=== PATIENT | male | born 1960 | race Caucasian/White ===

== ENCOUNTER 2018-06-07 18:40 | Inpatient (IN) | payer BC, OTHER ==
[~2018-06-07] VITALS: Ht 172.7 cm; Wt 123.4 kg
--- NOTE | 2018-06-07 18:56 | NUR ---
THIS RN ATTEMPTED TO CALL PT BACK. NILx1.
[2018-06-07] MEDS ORDERED: SODIUM CHLORIDE 0.9% 1,000 ML IV ONE (19:29)
[2018-06-07] MEDS ORDERED: AZITHROMYCIN 500 MG in SODIUM CHLORIDE 0.9% 250 ML IVPB ONE (19:30)
[2018-06-07] MEDS ORDERED: ACETAMINOPHEN 500 MG TABLET PO ONE (19:30)
[2018-06-07] MEDS ORDERED: SODIUM CHLORIDE FLUSH 10ML SYR IVF ONE (19:30)
[2018-06-07] MEDS ORDERED: CEFTRIAXONE PMX 1GM/50ML 50 ML IVPB ONE (19:30)
[2018-06-07] MEDS ORDERED: CEFTRIAXONE PMX 1GM/50ML 50 ML ONE (19:39)
[2018-06-07] MEDS ORDERED: ACETAMINOPHEN 500 MG TABLET ONE (19:39)
[2018-06-07] MEDS ORDERED: ALBUTEROL/IPRATROPIUM 2.5MG/0.5MG, 3 ML ONE (19:45)
[2018-06-07] MEDS ORDERED: KETOROLAC 30 MG/1 ML ONE (19:49)
[2018-06-07] MEDS ORDERED: MORPHINE SULFATE 4 MG/ML, 1ML ONE (19:49)
[2018-06-07 19:57] LABS: INTERNATIONAL NORMALIZED RATIO 1.14 (0.93-1.1); PROTHROMBIN TIME 11.9 Seconds (9.6-11.5)
[2018-06-07 19:58] LABS: ALANINE AMINOTRANSFERASE 53 U/L (12-78); ALBUMIN 3.6 g/dL (3.4-5.0); ANION GAP 7 mmol/L (5-15); CALCIUM 8.5 mg/dL (8.5-10.1); CHLORIDE 106 mmol/L (98-107); CREATININE 1.08 mg/dL (0.7-1.3)
[2018-06-07] MEDS ORDERED: SODIUM CHLORIDE 0.9% 1,000ML IVBOLUS ONE (20:00)
[2018-06-07] MEDS ORDERED: KETOROLAC 30 MG/1 ML IVPush ONE (20:00)
[2018-06-07] MEDS ORDERED: ALBUTEROL/IPRATROPIUM 2.5MG/0.5MG, 3 ML NPPB ONE (20:00)
[2018-06-07] MEDS ORDERED: MORPHINE SULFATE 4 MG/ML, 1ML IVPush PRN (20:00)
[2018-06-07 20:02] LABS: ALKALINE PHOSPHATASE 42 U/L (45-117); BILIRUBIN,TOTAL 0.9 mg/dL (0.2-1.0); TOTAL PROTEIN 7.4 g/dL (6.4-8.2)
[2018-06-07 20:04] LABS: RAPID INFLUENZA A Negative (Negative); RAPID INFLUENZA B Negative (Negative)
[2018-06-07 20:08] LABS: MEAN CORPUSCULAR HEMOGLOBIN 30.7 pg (27.5-34.5); MEAN CORPUSCULAR HGB CONC 33.7 g/dL (33.2-36.2); MEAN CORPUSCULAR VOLUME 91.1 fL (81-97); MEAN PLATELET VOLUME 13.4 fL (7.4-10.4); PLATELET COUNT 116 x10^3/uL (130-400); RED BLOOD COUNT 5.28 x10^6/uL (4.38-5.82); RED CELL DISTRIBUTION WIDTH 14.5 % (9.4-14.8)
[2018-06-07 20:09] LABS: MD YES
[2018-06-07 20:11] LABS: BAND#(MANUAL) 1.19 x10^3/uL; BANDS%(MANUAL) 9 % (0-7); LYMPH#(MANUAL) 0.53 x10^3/uL (1-3.4); LYMPHS% (MANUAL) 4 % (22-44); MONOS#(MANUAL) 0.79 x10^3/uL (0.3-2.7); MONOS% (MANUAL) 6 % (2-9); SEG#(MANUAL) 10.69 x10^3/uL (1.8-6.8); SEGS% (MANUAL) 81 % (42-75)
[2018-06-07 20:12] LABS: <PLATELET ESTIMATE> DECREASED; <RBC MORPHOLOGY> NORMAL; LARGE PLATELETS 1+
--- NOTE | 2018-06-07 20:18 | NUR ---
[facility] AT BEDSIDE
[2018-06-07] MEDS ORDERED: DILTIAZEM 5 MG/ML, 10ML ONE (20:26)
[2018-06-07] MEDS ORDERED: NITROGLYCERIN 0.4 MG BOTTLE (25 TABS) SL PRN (20:30)
[2018-06-07] MEDS ORDERED: ONDANSETRON 2MG/ML, 2ML IVPush PRN (20:30)
[2018-06-07] MEDS ORDERED: morphine SULFATE 10 MG/ML, 1ML IVPush PRN (20:30)
[2018-06-07] MEDS ORDERED: NITROGLYCERIN 0.4 MG/SPRAY SL PRN (20:30)
[2018-06-07] MEDS ORDERED: ACETAMINOPHEN 325 MG TABLET PO PRN (20:30)
[2018-06-07] MEDS: DILTIAZEM 5 MG/ML, 5ML IVPush PRN ×2 (20:33→22:06)
[2018-06-07] MEDS ORDERED: KETOROLAC 30 MG/1 ML IV PRN (21:00)
[2018-06-07 21:14] LABS: HEMOGLOBIN A1C 5.9 % (4.2-6.3)
[2018-06-07 21:15] VITALS: BP 101/75
[2018-06-07 21:52] LABS: TROPONIN I 0.035 ng/mL (0.000-0.045)
[2018-06-07 21:58] LABS: FREE T4 (FREE THYROXINE) 1.38 ng/dL (0.76-1.46); THYROID STIMULATING HORMONE 0.773 mIU/L (0.358-3.740)
[2018-06-07] MEDS: LACTATED RINGERS 1,000 ML IV SCH (22:04)
[2018-06-07] MEDS: FAMOTIDINE 20 MG/2 ML IVPush SCH (22:05)
[2018-06-07] MEDS: methylPREDNISolone SOD SUCC 125 MG/2 ML IVPush SCH (22:05)
[2018-06-07] MEDS: ENOXAPARIN 40 MG/0.4 ML SQ SCH (22:05)
[2018-06-07] MEDS ORDERED: MAGNESIUM SULFATE PMX 2GM/50ML 50 ML IV ONE (22:30)
[2018-06-08] VITALS (7 sets, daily range): BP systolic 114–152; BP diastolic 76–110
[2018-06-08 02:02] LABS: MEAN CORPUSCULAR HEMOGLOBIN 30.9 pg (27.5-34.5); MEAN CORPUSCULAR HGB CONC 33.5 g/dL (33.2-36.2); MEAN CORPUSCULAR VOLUME 92.3 fL (81-97); MEAN PLATELET VOLUME 12.4 fL (7.4-10.4); PLATELET COUNT 103 x10^3/uL (130-400); RED BLOOD COUNT 5.19 x10^6/uL (4.38-5.82); RED CELL DISTRIBUTION WIDTH 14.8 % (9.4-14.8)
[2018-06-08 02:19] LABS: TROPONIN I 0.028 ng/mL (0.000-0.045)
[2018-06-08 02:26] LABS: MD YES
[2018-06-08 02:28] LABS: <PLATELET ESTIMATE> DECREASED; <RBC MORPHOLOGY> NORMAL; BAND#(MANUAL) 2.53 x10^3/uL; BANDS%(MANUAL) 16 % (0-7); LARGE PLATELETS 1+; LYMPH#(MANUAL) 0.95 x10^3/uL (1-3.4); LYMPHS% (MANUAL) 6 % (22-44); MONOS#(MANUAL) 0.79 x10^3/uL (0.3-2.7); MONOS% (MANUAL) 5 % (2-9); SEG#(MANUAL) 11.53 x10^3/uL (1.8-6.8); SEGS% (MANUAL) 73 % (42-75)
[2018-06-08 02:44] LABS: ALANINE AMINOTRANSFERASE 49 U/L (12-78); ALBUMIN 3.3 g/dL (3.4-5.0); ANION GAP 6 mmol/L (5-15); CALCIUM 8.1 mg/dL (8.5-10.1); CHLORIDE 108 mmol/L (98-107)
[2018-06-08 02:47] LABS: ALKALINE PHOSPHATASE 39 U/L (45-117); BILIRUBIN,TOTAL 0.8 mg/dL (0.2-1.0); CHOL/HDL RATIO 3.4; CHOLESTEROL, TOTAL 116 mg/dL (140-239); CREATININE 1.04 mg/dL (0.7-1.3); HDL CHOL % 29 % (26-37); HDL CHOLESTEROL (DIRECT) 34 mg/dL (40-60); LDL CHOLESTEROL,CALCULATED 74 mg/dL (54-169); LDL/HDL RATIO 2.2 (0.5-3.0); TOTAL PROTEIN 7.2 g/dL (6.4-8.2); TRIGLYCERIDES 42 mg/dL (50-200); VLDL CHOLESTEROL 8 mg/dL (0-25)
[2018-06-08] MEDS: methylPREDNISolone SOD SUCC 125 MG/2 ML IVPush SCH ×4 (03:06→20:49)
[2018-06-08] MEDS ORDERED: ALBUTEROL SULFATE 2.5 MG/3 ML ONE (03:24)
[2018-06-08] MEDS: ALBUTEROL SULFATE 2.5 MG/3 ML NPPB SCH ×5 (03:31→20:00)
[2018-06-08] MEDS: ASPIRIN 325 MG TABLET EC PO SCH (05:37)
[2018-06-08] MEDS ORDERED: ASPIRIN 325 MG TABLET EC PO SCH (06:00)
[2018-06-08] MEDS ORDERED: DIGOXIN 0.125 MG TABLET PO SCH (09:00)
[2018-06-08] MEDS: CEFTRIAXONE PMX 1GM/50ML 50 ML IV SCH ×3 (09:33→22:11)
[2018-06-08] MEDS: FAMOTIDINE 20 MG/2 ML IVPush SCH ×2 (09:34→20:48)
[2018-06-08] MEDS: LACTATED RINGERS 1,000 ML IV SCH ×2 (09:34→18:11)
[2018-06-08 10:33] LABS: MICROSCOPIC AUTO
[2018-06-08 10:35] LABS: CULTURE INDICATED? NO
[2018-06-08] MEDS: DILTIAZEM 5 MG/ML, 5ML IVPush PRN (11:59)
[2018-06-08] MEDS: DILTIAZEM 125 MG in SODIUM CHLORIDE 0.9% 100 ML IV SCH (18:15)
[2018-06-08] MEDS: AZITHROMYCIN 500 MG in SODIUM CHLORIDE 0.9% 250 ML IV SCH ×2 (20:42→21:00)
[2018-06-08] MEDS: ENOXAPARIN 40 MG/0.4 ML SQ SCH (20:48)
[2018-06-09] VITALS (7 sets, daily range): BP systolic 107–151; BP diastolic 69–94
[2018-06-09] MEDS: ALBUTEROL SULFATE 2.5 MG/3 ML NPPB SCH ×5 (01:52→20:00)
[2018-06-09] MEDS: methylPREDNISolone SOD SUCC 125 MG/2 ML IVPush SCH ×3 (03:15→15:34)
[2018-06-09] MEDS: LACTATED RINGERS 1,000 ML IV SCH (03:16)
[2018-06-09 05:23] LABS: ALBUMIN 2.8 g/dL (3.4-5.0); ANION GAP 5 mmol/L (5-15); CALCIUM 8.2 mg/dL (8.5-10.1); CHLORIDE 110 mmol/L (98-107)
[2018-06-09] MEDS: ASPIRIN 325 MG TABLET EC PO SCH (05:24)
[2018-06-09 05:27] LABS: ALANINE AMINOTRANSFERASE 47 U/L (12-78); ALKALINE PHOSPHATASE 32 U/L (45-117); BILIRUBIN,TOTAL 0.4 mg/dL (0.2-1.0); CREATININE 0.79 mg/dL (0.7-1.3); TOTAL PROTEIN 6.5 g/dL (6.4-8.2)
[2018-06-09 05:38] LABS: BASOPHILS % (AUTO) 0 % (0-1); EOSINOPHILS % (AUTO) 0 % (1-7); LYMPHOCYTES # (AUTO) 0.18 x10^3/uL (1-3.4); LYMPHOCYTES % (AUTO) 1 % (22-44); MD SCAN; MEAN CORPUSCULAR HEMOGLOBIN 30.8 pg (27.5-34.5); MEAN CORPUSCULAR HGB CONC 33.5 g/dL (33.2-36.2); MEAN CORPUSCULAR VOLUME 91.8 fL (81-97); MEAN PLATELET VOLUME 13.4 fL (7.4-10.4); MONOCYTES % (AUTO) 2 % (2-9); NEUTROPHILS # (AUTO) 12.43 x10^3/uL (1.8-6.8); NEUTROPHILS % (AUTO) 96 % (42-75); PLATELET COUNT 104 x10^3/uL (130-400); RED BLOOD COUNT 4.76 x10^6/uL (4.38-5.82)
[2018-06-09] MEDS: CEFTRIAXONE PMX 1GM/50ML 50 ML IV SCH ×2 (08:33→21:07)
[2018-06-09] MEDS: FAMOTIDINE 20 MG/2 ML IVPush SCH ×2 (08:33→21:07)
[2018-06-09] MEDS: DILTIAZEM 125 MG in SODIUM CHLORIDE 0.9% 100 ML IV SCH (15:34)
[2018-06-09] MEDS: DILTIAZEM 30 MG TABLET PO SCH ×2 (15:59→21:08)
[2018-06-09] MEDS: ENOXAPARIN 40 MG/0.4 ML SQ SCH (21:07)
[2018-06-09] MEDS: AZITHROMYCIN 500 MG in SODIUM CHLORIDE 0.9% 250 ML IV SCH (22:00)
[2018-06-10 00:16] VITALS: BP 131/94
[2018-06-10] MEDS: ALBUTEROL SULFATE 2.5 MG/3 ML NPPB SCH ×5 (02:00→19:30)
[2018-06-10] MEDS ORDERED: methylPREDNISolone SOD SUCC 125 MG/2 ML IVPush SCH (03:00)
[2018-06-10 05:50] VITALS: BP 149/84
[2018-06-10] MEDS: ASPIRIN 325 MG TABLET EC PO SCH (05:55)
[2018-06-10] MEDS: DILTIAZEM 30 MG TABLET PO SCH (05:55)
[2018-06-10 08:13] VITALS: BP 144/96
[2018-06-10] MEDS: FAMOTIDINE 20 MG/2 ML IVPush SCH ×2 (08:29→20:54)
[2018-06-10] MEDS: CEFTRIAXONE PMX 1GM/50ML 50 ML IV SCH ×2 (08:30→20:54)
[2018-06-10 08:45] LABS: MEAN CORPUSCULAR HEMOGLOBIN 30.1 pg (27.5-34.5); MEAN CORPUSCULAR HGB CONC 32.7 g/dL (33.2-36.2); MEAN CORPUSCULAR VOLUME 92.1 fL (81-97); RED BLOOD COUNT 4.92 x10^6/uL (4.38-5.82); RED CELL DISTRIBUTION WIDTH 15.1 % (9.4-14.8)
[2018-06-10 09:20] LABS: BASOPHILS % (AUTO) 0 % (0-1); EOSINOPHILS % (AUTO) 0 % (1-7); LYMPHOCYTES # (AUTO) 0.18 x10^3/uL (1-3.4); LYMPHOCYTES % (AUTO) 1 % (22-44); MD SCAN; MEAN PLATELET VOLUME 13.1 fL (7.4-10.4); MONOCYTES # (AUTO) 0.27 x10^3/uL (0.2-0.8); MONOCYTES % (AUTO) 2 % (2-9); NEUTROPHILS % (AUTO) 96 % (42-75); PLATELET COUNT 120 x10^3/uL (130-400)
[2018-06-10 12:30] VITALS: BP 136/91
[2018-06-10 16:32] VITALS: BP 142/89
[2018-06-10] MEDS: DILTIAZEM 60 MG TABLET PO SCH ×2 (16:33→20:54)
[2018-06-10 20:26] VITALS: BP 149/90
[2018-06-10] MEDS: ENOXAPARIN 40 MG/0.4 ML SQ SCH (20:54)
[2018-06-11 00:58] VITALS: BP 152/103
[2018-06-11 05:27] LABS: MEAN CORPUSCULAR HEMOGLOBIN 30.6 pg (27.5-34.5); MEAN CORPUSCULAR VOLUME 92.8 fL (81-97); RED BLOOD COUNT 4.89 x10^6/uL (4.38-5.82); RED CELL DISTRIBUTION WIDTH 15.1 % (9.4-14.8)
[2018-06-11] MEDS: ASPIRIN 325 MG TABLET EC PO SCH (05:31)
[2018-06-11] MEDS: DILTIAZEM 60 MG TABLET PO SCH (05:31)
[2018-06-11 05:43] LABS: ANION GAP 7 mmol/L (5-15); CALCIUM 8.5 mg/dL (8.5-10.1); CHLORIDE 110 mmol/L (98-107); CREATININE 0.67 mg/dL (0.7-1.3)
[2018-06-11 05:55] LABS: MEAN PLATELET VOLUME 12.5 fL (7.4-10.4); PLATELET COUNT 120 x10^3/uL (130-400)
[2018-06-11 06:04] LABS: BASOPHILS % (AUTO) 0 % (0-1); EOSINOPHILS % (AUTO) 0 % (1-7); LYMPHOCYTES # (AUTO) 0.35 x10^3/uL (1-3.4); LYMPHOCYTES % (AUTO) 3 % (22-44); MD SCAN; MONOCYTES # (AUTO) 0.65 x10^3/uL (0.2-0.8); MONOCYTES % (AUTO) 6 % (2-9); NEUTROPHILS # (AUTO) 10.62 x10^3/uL (1.8-6.8); NEUTROPHILS % (AUTO) 91 % (42-75)
[2018-06-11] MEDS: ALBUTEROL SULFATE 2.5 MG/3 ML NPPB SCH ×3 (07:00→14:49)
[2018-06-11 07:06] VITALS: BP 142/67
[2018-06-11] MEDS ORDERED: ASPIRIN 81 MG TABLET EC PO SCH (08:00)
[2018-06-11] MEDS: FAMOTIDINE 20 MG/2 ML IVPush SCH (09:05)
[2018-06-11] MEDS: CEFTRIAXONE PMX 1GM/50ML 50 ML IV SCH (09:18)
[2018-06-11] MEDS ORDERED: DILTIAZEM 300 MG CAP.ER.24H PO SCH (11:00)
[2018-06-11] MEDS ORDERED: FUROSEMIDE 20 MG/2 ML IV ONE (12:30)
[2018-06-11] MEDS: METOPROLOL TARTRATE 25 MG TABLET PO SCH ×2 (12:52→15:16)
[2018-06-11 14:54] VITALS: BP 134/86
[2018-06-11] MEDS ORDERED: DILT300C2 PO (15:23)
[2018-06-11] MEDS ORDERED: ASPI81TA45 PO (15:23)
[2018-06-11] MEDS ORDERED: PRED10TA PO (15:23)
[2018-06-11] MEDS ORDERED: CEFD300C37 PO (15:23)
[2018-06-11] MEDS ORDERED: METO25TA35 PO (15:23)
[2018-06-11] MEDS ORDERED: FAMOTIDINE 20 MG TABLET PO SCH (21:00)
== END 2018-06-11 17:04 | disposition home or self-care (01) | DRG 871 ==
LOC: ED 20:09 → EDIP 20:43 → 5SO 20:57 → DCLOUNGE 06-11 16:55
PROVIDERS: ADMIT Family Medicine; ATTEND Family Medicine
DX: A41.9 Sepsis, unspecified organism (principal); J96.01 Acute respiratory failure with hypoxia; J15.3 Pneumonia due to streptococcus, group B; D68.69 Other thrombophilia; D69.6 Thrombocytopenia, unspecified; E66.9 Obesity, unspecified; I34.0 Nonrheumatic mitral (valve) insufficiency; Z96.642 Presence of left artificial hip joint; Z96.653 Presence of artificial knee joint, bilateral; T38.0X5A Adverse effect of glucocorticoids and synthetic analogues, initial encounter; E83.42 Hypomagnesemia; I48.91 Unspecified atrial fibrillation; I77.810 Thoracic aortic ectasia; Z68.35 Body mass index [BMI] 35.0-35.9, adult; Y92.098 Other place in other non-institutional residence as the place of occurrence of the external cause
CPT/HCPCS: 36415; 84145; 87400; 99285; J3490; J7613; J7620; 71045; 80048; 80053; 80061; 81001; 83036; 83605; 83735; 84439; 84443; 84484; 85025; 85610; 85730; 87040; 87070; 87147; 87181; 87205; 93005; 93306; 94640; 96374; 96375; G0378; J0456; J0696; J1650; J1885; J1940; J2930; J3475; J7030; J7050; J7120; J7512

== ENCOUNTER 2020-04-11 08:04 | Inpatient (IN) | payer BC ==
[~2020-04-11] VITALS: Ht 172.7 cm; Wt 125.5 kg
[~2020-04-11 08:04] MED LIST: ASPI81TA45 PO; CEFD300C37 PO; DILT300C2 PO; METO25TA35 PO; PRED10TA PO
[2020-04-11] MEDS ORDERED: SODIUM CHLORIDE FLUSH 10ML SYR IVF ONE (08:30)
[2020-04-11] MEDS ORDERED: methylPREDNISolone SOD SUCC 125 MG/2 ML IV ONE (08:30)
--- NOTE | 2020-04-11 08:34 | NUR ---
Pt here for SOB X "one year". Pt has c/o BLE edema, occasional cough, dyspnea on exertion.
[2020-04-11] MEDS ORDERED: methylPREDNISolone SOD SUCC 125 MG/2 ML ONE (08:43)
[2020-04-11 09:00] LABS: BASOPHILS % (AUTO) 2 % (0-1); EOSINOPHILS % (AUTO) 3 % (1-7); LYMPHOCYTES % (AUTO) 13 % (22-44); MEAN CORPUSCULAR HEMOGLOBIN 31.6 pg (27.5-34.5); MEAN CORPUSCULAR HGB CONC 33.2 g/dL (33.2-36.2); MEAN PLATELET VOLUME 12.4 fL (7.4-10.4); MONOCYTES % (AUTO) 12 % (2-9); NEUTROPHILS % (AUTO) 70 % (42-75); PLATELET COUNT 116 x10^3/uL (130-400); RED BLOOD COUNT 5.07 x10^6/uL (4.38-5.82); RED CELL DISTRIBUTION WIDTH 14.3 % (9.4-14.8)
[2020-04-11] MEDS ORDERED: DILTIAZEM 5 MG/ML, 5ML IVPush ONE (09:00)
[2020-04-11] MEDS ORDERED: DILTIAZEM 5 MG/ML, 5ML ONE (09:06)
[2020-04-11 09:09] LABS: ALANINE AMINOTRANSFERASE 45 U/L (12-78); ALBUMIN 3.4 g/dL (3.4-5.0); ANION GAP 4 mmol/L (5-15); CALCIUM 8.7 mg/dL (8.5-10.1); CHLORIDE 111 mmol/L (98-107); CREATININE 0.91 mg/dL (0.7-1.3)
--- NOTE | 2020-04-11 09:11 | NUR ---
Pt medicated with Solumederol amd Diltiazem. VS updated.
[2020-04-11 09:13] LABS: ALKALINE PHOSPHATASE 41 U/L (45-117); BILIRUBIN,TOTAL 0.6 mg/dL (0.2-1.0); TOTAL PROTEIN 6.6 g/dL (6.4-8.2); TROPONIN I < 0.015 ng/mL (0.000-0.045)
[2020-04-11 09:26] LABS: MD SCAN
--- NOTE | 2020-04-11 09:37 | NUR ---
TASK RN NOTE" PT VS UPDATED IN CHART. NAD NOTED AT THIS TIME. NO WOB NOTED. MED RECONCILIATION COMPLETED, PT DENIES TAKING ANY MEDICATIONS AT THIS TIME. REVIEWED PREVIOUS HOME MEDICATIONS FROM CHART AND PER PT ALL HAVE BEEN DISCONTINUED. SIDE RAIL UP, CALL LIGHT IN REACH.
[2020-04-11] MEDS ORDERED: ALBUTEROL/IPRATROPIUM 2.5MG/0.5MG, 3 ML ONE (09:43)
--- NOTE | 2020-04-11 09:47 | NUR ---
TASK RN NOTE: DISCUSSION WITH ERPA REGARDING BREATHING TREATMENT ORDER. MED ADMINISTERED ORDERED. TX UNDERWAY.
[2020-04-11] MEDS ORDERED: ALBUTEROL/IPRATROPIUM 2.5MG/0.5MG, 3 ML NPPB ONE (10:00)
[2020-04-11] MEDS ORDERED: FUROSEMIDE 20 MG/2 ML IV ONE (10:30)
[2020-04-11] MEDS ORDERED: FUROSEMIDE 20 MG/2 ML ONE (10:53)
--- NOTE | 2020-04-11 11:11 | NUR ---
Pt resting, resp even appear unlabored at this time. Dyspnea with exertion. Given Lasix. VS updated. Handoff report provided to LUCI Cardoso.
[2020-04-11 11:35] VITALS: BP 174/108
[2020-04-11] MEDS ORDERED: DILTIAZEM 5 MG/ML, 5ML IVPush PRN (12:30)
[2020-04-11] MEDS ORDERED: ONDANSETRON 2MG/ML, 2ML IVPush PRN (12:30)
[2020-04-11] MEDS ORDERED: ONDANSETRON ODT 4 MG PO PRN (12:30)
[2020-04-11] MEDS: Enoxaparin 1 mg/kg protocol SQ SCH (12:30)
[2020-04-11] MEDS: METOPROLOL TARTRATE 50 MG TAB PO SCH ×2 (13:10→21:59)
[2020-04-11] MEDS: ENOXAPARIN 120MG/0.8ML SQ SCH (13:11)
[2020-04-11 15:40] LABS: TROPONIN I < 0.015 ng/mL (0.000-0.045)
[2020-04-11] MEDS: FUROSEMIDE 20 MG/2 ML IV SCH (18:03)
[2020-04-11 19:08] VITALS: BP 145/94
[2020-04-11 21:42] LABS: TROPONIN I < 0.015 ng/mL (0.000-0.045)
[2020-04-12] MEDS: Enoxaparin 1 mg/kg protocol SQ SCH (00:30)
[2020-04-12 00:47] VITALS: BP 117/89
[2020-04-12] MEDS: ENOXAPARIN 120MG/0.8ML SQ SCH (01:26)
[2020-04-12] MEDS: METOPROLOL TARTRATE 50 MG TAB PO SCH (05:10)
[2020-04-12 05:37] LABS: BASOPHILS % (AUTO) 0 % (0-1); EOSINOPHILS % (AUTO) 0 % (1-7); LYMPHOCYTES % (AUTO) 4 % (22-44); MEAN CORPUSCULAR HEMOGLOBIN 31.7 pg (27.5-34.5); MEAN CORPUSCULAR HGB CONC 32.9 g/dL (33.2-36.2); MEAN PLATELET VOLUME 12.1 fL (7.4-10.4); MONOCYTES % (AUTO) 5 % (2-9); NEUTROPHILS % (AUTO) 91 % (42-75); PLATELET COUNT 128 x10^3/uL (130-400); RED BLOOD COUNT 5.09 x10^6/uL (4.38-5.82); RED CELL DISTRIBUTION WIDTH 14.4 % (9.4-14.8)
[2020-04-12 05:47] LABS: ALBUMIN 3.3 g/dL (3.4-5.0); ANION GAP 5 mmol/L (5-15); CALCIUM 9.1 mg/dL (8.5-10.1); CHLORIDE 109 mmol/L (98-107)
[2020-04-12 05:58] LABS: ALANINE AMINOTRANSFERASE 43 U/L (12-78); ALKALINE PHOSPHATASE 39 U/L (45-117); BILIRUBIN,TOTAL 0.8 mg/dL (0.2-1.0); CHOL/HDL RATIO 3.8; CHOLESTEROL, TOTAL 185 mg/dL (140-239); CREATININE 0.89 mg/dL (0.7-1.3); HDL CHOL % 26 % (26-37); HDL CHOLESTEROL (DIRECT) 49 mg/dL (40-60); LDL CHOLESTEROL,CALCULATED 126 mg/dL (54-169); LDL/HDL RATIO 2.6 (0.5-3.0); TOTAL PROTEIN 6.7 g/dL (6.4-8.2); TRIGLYCERIDES 52 mg/dL (50-200); VLDL CHOLESTEROL 10 mg/dL (0-25)
[2020-04-12 06:24] LABS: MD SCAN
[2020-04-12 07:32] VITALS: BP 144/93
[2020-04-12] MEDS ORDERED: POTASSIUM CHLORIDE 20 MEQ TAB.ER.PRT PO SCH (08:00)
[2020-04-12] MEDS: FUROSEMIDE 20 MG/2 ML IV SCH (09:23)
[2020-04-13] MEDS ORDERED: RIVA20TA PO (15:34)
== END 2020-04-12 11:28 | disposition left against medical advice (07) | DRG 292 ==
LOC: ED 09:20 → EDIP 10:36 → 4WST 11:27
PROVIDERS: ADMIT Internal Medicine; ATTEND Internal Medicine
DX: I11.0 Hypertensive heart disease with heart failure (principal); D68.69 Other thrombophilia; I48.20 Chronic atrial fibrillation, unspecified; Z53.29 Procedure and treatment not carried out because of patient's decision for other reasons; I50.33 Acute on chronic diastolic (congestive) heart failure; D69.6 Thrombocytopenia, unspecified; Z96.649 Presence of unspecified artificial hip joint; Z96.659 Presence of unspecified artificial knee joint; E74.39 Other disorders of intestinal carbohydrate absorption; Z82.5 Family history of asthma and other chronic lower respiratory diseases; Z91.19 Patient's noncompliance with other medical treatment and regimen
CPT/HCPCS: 36415; 71045; 80053; 80061; 83036; 83735; 83880; 84100; 84443; 84484; 85025; 93005; 93306; 96374; 96375; 99285; G0378; J1650; J1940; J2930

== ENCOUNTER 2020-04-12 18:09 | Inpatient (IN) | payer BC ==
[~2020-04-12] VITALS: Ht 170.2 cm; Wt 126.6 kg
--- NOTE | 2020-04-12 19:42 | NUR ---
MD AT BEDSIDE FOR ASSESSMENT. PLAN OF CARE DISCUSSED
[2020-04-12] MEDS ORDERED: ALBUTEROL/IPRATROPIUM 2.5MG/0.5MG, 3 ML ONE (19:47)
[2020-04-12] MEDS ORDERED: ALBUTEROL/IPRATROPIUM 2.5MG/0.5MG, 3 ML NPPB ONE (20:00)
--- NOTE | 2020-04-12 20:48 | NUR ---
PT STATES HE TAKES NO HOME MEDS AT THIS TIME
[2020-04-12 21:30] LABS: AMPHETAMINE SCREEN, URINE Negative (Negative); BARBITURATE SCREEN, URINE Negative (Negative); BENZODIAZEPINE SCREEN, URINE Negative (Negative); CANNABINOID SCREEN, URINE Negative (Negative); COCAINE SCREEN, URINE Negative (Negative); METHADONE SCREEN, URINE Negative (Negative); OPIATE SCREEN, URINE Negative (Negative)
[2020-04-12] MEDS ORDERED: DILTIAZEM 5 MG/ML, 5ML IVPush PRN (21:30)
[2020-04-12] MEDS ORDERED: OXYcodone IR 5MG TABLET PO PRN (21:30)
[2020-04-12] MEDS ORDERED: POLYETHYLENE GLYCOL 17 GM PACKET PO PRN (21:30)
[2020-04-12] MEDS ORDERED: morphine SULFATE 10 MG/ML, 1ML IVPush PRN (21:30)
[2020-04-12] MEDS ORDERED: DOCUSATE 100 MG CAPSULE PO PRN (21:30)
[2020-04-12] MEDS ORDERED: BISACODYL 10 MG SUPP PR PRN (21:30)
[2020-04-12] MEDS ORDERED: LABETALOL 5MG/ML, 20ML IVPush PRN (21:30)
[2020-04-12] MEDS ORDERED: ACETAMINOPHEN 325 MG TABLET PO PRN (21:30)
[2020-04-12] MEDS ORDERED: hydrALAzine 20 MG/ML, 1ML IVPush PRN (21:30)
[2020-04-12] MEDS ORDERED: CARVEDILOL 6.25 MG TABLET ONE (21:42)
[2020-04-12] MEDS ORDERED: FUROSEMIDE 20 MG/2 ML ONE (21:42)
[2020-04-12] MEDS: FUROSEMIDE 20 MG/2 ML IV SCH (21:51)
[2020-04-12] MEDS: CARVEDILOL 6.25 MG TABLET PO SCH (21:51)
--- NOTE | 2020-04-12 21:58 | NUR ---
PT RESTING ON [facility]. VSS. NAD. IV ACCESS OBTAINED. ORDERED MEDICATIONS ADMINISTERED. CALL LIGHT W/IN REACH
--- NOTE | 2020-04-12 22:05 | NUR ---
REPORT GIVEN TO TIMMY
--- NOTE | 2020-04-12 22:05 | NUR ---
REPORT FROM DOMINIQUE VERMA. PT RESTING WITH NO NEEDS AT THIS TIME. CALL LIGHT IN REACH
[2020-04-12] MEDS: ENOXAPARIN 120MG/0.8ML SQ SCH (23:02)
--- NOTE | 2020-04-12 23:17 | NUR ---
REPORT TO LEX VERMA.
--- NOTE | 2020-04-12 23:20 | NUR ---
patient resting in bed in NAD. VS remain stable. call gutierrez in reach. Hospital bed requested by truck repair service estimator at this time and then will be moved to a different ER room. will continue to monitor
--- NOTE | 2020-04-13 00:23 | NUR ---
patient transferred to room 22 on hospital bed. reconnected to O2. VS remained stable. patient denies CP. mild SOB with ambulating in room. call gutierrez in reach. safety maintained. will continue to monitor.
--- NOTE | 2020-04-13 01:13 | NUR ---
call gutierrez in reach. resting in bed with eyes closed. safety maintained. will continue to monitor
--- NOTE | 2020-04-13 02:45 | NUR ---
patient resting in bed with eyes closed on R lateral side. VS remain stable. patient remains in contralled afib. safety maintained. will continue to monitor.
--- NOTE | 2020-04-13 03:25 | NUR ---
patient easily arousable to voice. RN asked is patient would be able to supply us with a urine sample. patient requested privacy.
--- NOTE | 2020-04-13 04:33 | NUR ---
patient resting in bed on L lateral side with eyes closed in NAD. safety maintained. call gutierrez in reach. VS remain stable on 2L via NC
[2020-04-13 05:10] LABS: BASOPHILS % (AUTO) 1 % (0-1); EOSINOPHILS % (AUTO) 1 % (1-7); LYMPHOCYTES % (AUTO) 16 % (22-44); MEAN CORPUSCULAR HEMOGLOBIN 31.4 pg (27.5-34.5); MEAN PLATELET VOLUME 11.7 fL (7.4-10.4); MONOCYTES % (AUTO) 12 % (2-9); NEUTROPHILS % (AUTO) 71 % (42-75); RED BLOOD COUNT 5.17 x10^6/uL (4.38-5.82); RED CELL DISTRIBUTION WIDTH 14.4 % (9.4-14.8)
[2020-04-13 05:21] LABS: CHLORIDE 111 mmol/L (98-107)
[2020-04-13 05:32] LABS: ALANINE AMINOTRANSFERASE 47 U/L (12-78); ALBUMIN 3.3 g/dL (3.4-5.0); ALKALINE PHOSPHATASE 36 U/L (45-117); ANION GAP 5 mmol/L (5-15); BILIRUBIN,TOTAL 0.8 mg/dL (0.2-1.0); CALCIUM 8.9 mg/dL (8.5-10.1); CHOLESTEROL, TOTAL 175 mg/dL (140-239); CREATININE 0.92 mg/dL (0.7-1.3); FREE T4 (FREE THYROXINE) 1.11 ng/dL (0.76-1.46); HDL CHOL % 25 % (26-37); HDL CHOLESTEROL (DIRECT) 44 mg/dL (40-60); LDL CHOLESTEROL,CALCULATED 114 mg/dL (54-169); LDL/HDL RATIO 2.6 (0.5-3.0); TOTAL PROTEIN 6.3 g/dL (6.4-8.2); TRIGLYCERIDES 87 mg/dL (50-200); VLDL CHOLESTEROL 17 mg/dL (0-25)
--- NOTE | 2020-04-13 05:40 | NUR ---
patient resting in bed with eyes closed. in NAD. VS remain stable on 2L via NC. will continue to monitor. remains in afib
[2020-04-13] MEDS ORDERED: CARVEDILOL 6.25 MG TABLET ONE (05:49)
[2020-04-13] MEDS: CARVEDILOL 6.25 MG TABLET PO SCH ×2 (05:55→17:15)
[2020-04-13 06:01] LABS: MD SCAN; PLATELET COUNT 118 x10^3/uL (130-400)
--- NOTE | 2020-04-13 06:50 | NUR ---
REPORT GIVEN TO ANÍBAL VERMA
[2020-04-13] MEDS ORDERED: FUROSEMIDE 20 MG/2 ML ONE (07:11)
[2020-04-13] MEDS: FUROSEMIDE 20 MG/2 ML IV SCH ×2 (07:15→17:15)
--- NOTE | 2020-04-13 07:21 | NUR ---
report from katie sandy. 400 cc uop. as
[2020-04-13] MEDS ORDERED: LISINOPRIL 5 MG TABLET ONE (08:13)
[2020-04-13] MEDS: SPIRONOLACTONE 25 MG TABLET PO SCH (08:31)
[2020-04-13] MEDS: LISINOPRIL 5 MG TABLET PO SCH (08:31)
--- NOTE | 2020-04-13 08:34 | NUR ---
800 fluids in. 700 uop. given breakfast/morning meds. as
--- NOTE | 2020-04-13 09:49 | NUR ---
report to bita sandy. as
[2020-04-13] MEDS: ENOXAPARIN 120MG/0.8ML SQ SCH ×2 (10:46→23:00)
[2020-04-13 10:48] VITALS: BP 127/85
[2020-04-13 11:04] VITALS: BP 127/85
[2020-04-13 11:57] VITALS: BP 130/94
[2020-04-13] MEDS ORDERED: RIVA20TA PO (15:34)
[2020-04-13 22:30] VITALS: BP 92/64
[2020-04-14 03:53] VITALS: BP 138/77
[2020-04-14] MEDS: CARVEDILOL 6.25 MG TABLET PO SCH (06:27)
[2020-04-14] MEDS: LISINOPRIL 5 MG TABLET PO SCH (08:39)
[2020-04-14] MEDS: SPIRONOLACTONE 25 MG TABLET PO SCH (08:39)
[2020-04-14] MEDS: FUROSEMIDE 20 MG/2 ML IV SCH (08:39)
[2020-04-14 08:50] VITALS: BP 108/76
[2020-04-14] MEDS: ENOXAPARIN 120MG/0.8ML SQ SCH (11:26)
[2020-04-14] MEDS ORDERED: SPIR25TA PO (14:31)
[2020-04-14] MEDS ORDERED: CARV6.2512 PO (14:31)
[2020-04-14] MEDS ORDERED: FURO40TA6 PO (14:31)
[2020-04-14] MEDS ORDERED: LISI5TAB7 PO (14:31)
[2020-04-14 15:30] VITALS: BP 106/71
[2020-04-14] MEDS ORDERED: RIVAROXABAN 20 MG TABLET PO SCH (23:00)
[2020-04-15] MEDS ORDERED: FUROSEMIDE 40 MG TABLET PO SCH (09:00)
== END 2020-04-14 16:50 | disposition home or self-care (01) | DRG 291 ==
LOC: ED 20:38 → EDIP 21:24 → 5SO 04-13 10:30 → DCLOUNGE 04-14 16:28
PROVIDERS: ADMIT Internal Medicine; ATTEND Internal Medicine
DX: I11.0 Hypertensive heart disease with heart failure (principal); J96.01 Acute respiratory failure with hypoxia; D68.69 Other thrombophilia; I48.20 Chronic atrial fibrillation, unspecified; Z68.41 Body mass index [BMI] 40.0-44.9, adult; I50.43 Acute on chronic combined systolic (congestive) and diastolic (congestive) heart failure; I42.9 Cardiomyopathy, unspecified; D69.6 Thrombocytopenia, unspecified; E66.9 Obesity, unspecified; I34.0 Nonrheumatic mitral (valve) insufficiency; J98.01 Acute bronchospasm; Z82.5 Family history of asthma and other chronic lower respiratory diseases; Z87.891 Personal history of nicotine dependence; Z91.14 Patient's other noncompliance with medication regimen; Z96.649 Presence of unspecified artificial hip joint; Z96.659 Presence of unspecified artificial knee joint
CPT/HCPCS: 36415; 80053; 80061; 80307; 80320; 83036; 83735; 84439; 84481; 85025; 93005; 99285; G0378; J1650; G0480; J1940

== ENCOUNTER → 2020-07-14 | Outpatient (CLI) | payer BC ==
[~2020-07-14] MED LIST changes: +CARV6.2512 PO; +FURO40TA6 PO; +LISI5TAB7 PO; +REGADENOSON 0.4 MG/5 ML SYRINGE ONE; +RIVA20TA PO; +SPIR25TA PO
== END | disposition home or self-care (01) ==
LOC: CFH 08:16
PROVIDERS: ATTEND Physician Assistant Medical
DX: I21.19 ST elevation (STEMI) myocardial infarction involving other coronary artery of inferior wall (principal); I48.91 Unspecified atrial fibrillation; I25.5 Ischemic cardiomyopathy; R07.9 Chest pain, unspecified
CPT/HCPCS: 78452; 93017; A9502; J2785